=== PATIENT | male | born 1965 | race Caucasian/White ===

== ENCOUNTER 2024-02-16 13:08 | Day surgery (SDC) | payer MEDICARE, MEDICAID ==
[2024-02-16] VITALS (10 sets, daily range): BP systolic 104–143; BP diastolic 38–73; PULSE 82–86; RESP 12–16; TEMP 98.6; O2SAT 91–97
[~2024-02-16] VITALS: Ht 172.7 cm; Wt 103.6 kg
[~2024-02-16 13:08] MED LIST: AMLO2.5T2 PO; ASCO500C17 PO; ASPI-611 PO; ATOR20TA66 PO; BUPR1PAT TOP; CHOL10008 PO; CYAN-34 PO; DICY10CA88 PO; DULO-31 PO; FERR134T2 PO; GABA800T11 PO; GLUC1KIT PO; HYDR-3972 PO; INSU100C4 SQ; INSU100V41 SQ; LEVE750T66 PO; LORA10TA7 PO; LOSA-415 PO; ONDA4TAB12 PO; PANT-47 PO; PIOG15TA8 PO; SENN-36 PO
[2024-02-16] MEDS ORDERED: PHEN50TA4 PO (13:53)
[2024-02-16] MEDS ORDERED: PYRI50TA12 PO (13:53)
[2024-02-16] MEDS ORDERED: LACT1TAB15 PO (13:53)
[2024-02-16] MEDS ORDERED: CALC0.2536 PO (13:53)
[2024-02-16 16:17] LABS: GLUCOSE,CSF 131 MG/DL (40-75); TOTAL PROTEIN,CSF 98 MG/DL (30-60)
[2024-02-16 16:52] LABS: APPEARANCE,CSF CLEAR; CSF RBC 183 /CU MM (0); CSF SUPERNATANT COLOR COLORLESS; CSF VOLUME 14.5 ML; CSF WBC CT 1 /CU MM (0-5); TUBE# COUNTED 3
[2024-02-20 12:31] LABS: IMMUNOGLOBULIN G, QN, SERUM 748 mg/dL (603-1613)
[2024-02-22 17:14] LABS: CRYPTOCOCCUS AG TITER, CSF Not Indicated (.); CRYPTOCOCCUS ANTIGEN, CSF Negative (Negative); IMMUNOGLOBULIN G, QN CSF 3.5 mg/dL (0.0-10.3); MYELIN BASIC PROTEIN, CSF 3.1 ng/mL (0.0-4.7); VDRL, CSF Non Reactive (Non Rea:<1:1)
[2024-02-23 06:17] LABS: CYTOMEGALOVIRUS PCR Negative (Negative)
== END 2024-02-16 17:45 | disposition home or self-care (01) ==
LOC: SSTAY O 13:08
PROVIDERS: ATTEND Psychiatry & Neurology Neurology
DX: R56.9 Unspecified convulsions (principal); I10 Essential (primary) hypertension; E11.40 Type 2 diabetes mellitus with diabetic neuropathy, unspecified; E78.5 Hyperlipidemia, unspecified; G47.30 Sleep apnea, unspecified; M19.90 Unspecified osteoarthritis, unspecified site; Z79.82 Long term (current) use of aspirin; Z79.891 Long term (current) use of opiate analgesic; Z79.899 Other long term (current) drug therapy; Z98.41 Cataract extraction status, right eye; Z98.42 Cataract extraction status, left eye; Z98.890 Other specified postprocedural states; Z88.8 Allergy status to other drugs, medicaments and biological substances; Z82.49 Family history of ischemic heart disease and other diseases of the circulatory system; Z82.61 Family history of arthritis; Z80.0 Family history of malignant neoplasm of digestive organs
CPT/HCPCS: 36415; 62328; 82040; 82042; 82784; 82945; 83873; 83916; 84157; 86592; 87015; 87070; 87102; 87496; 87529; 87899; 88108; 89051; A4615; A6449

== ENCOUNTER 2024-09-18 13:00 | Inpatient (IN) | payer MEDICARE, MEDICAID ==
[~2024-09-18] VITALS: Ht 172.7 cm; Wt 106.8 kg
[~2024-09-18 13:00] MED LIST changes: -AMLO2.5T2 PO; +CALC0.2536 PO; -FERR134T2 PO; +GABA-1555 PO; -GABA800T11 PO; +LACT1TAB15 PO; +ONDA-243 PO; -ONDA4TAB12 PO; +PHEN50TA4 PO; +PYRI50TA12 PO
[2024-09-18 15:52] LABS: BASOPHILS % (AUTO) 0 % (0-1); EOSINOPHILS # (AUTO) 0.2 X10'3 (0-0.9); EOSINOPHILS % (AUTO) 4.9 % (0-6); HEMATOCRIT 24.2 % (42.0-52.0); HEMOGLOBIN 7.8 g/dl (14.0-17.9); LYMPHOCYTES # (AUTO) 0.5 X10'3 (1.1-4.8); LYMPHOCYTES % (AUTO) 9.8 % (21-51); MEAN CORPUSCULAR HEMOGLOBIN 26.2 PG (27.0-31.0); MEAN CORPUSCULAR HGB CONC 32.1 g/dL (33.0-36.5); MEAN CORPUSCULAR VOLUME 81.7 FL (78-98); MONOCYTES # (AUTO) 2.7 X10'3 (0-0.9); NEUTROPHILS # (AUTO) 1.4 X10'3 (1.8-7.7); NEUTROPHILS % (AUTO) 29.3 % (42-75); PLATELET COUNT 177 X10'3 (140-440); RED BLOOD COUNT 2.96 X10'6 (4.70-6.10); RED CELL DISTRIBUTION WIDTH 19.4 % (11.5-14.5); WHITE BLOOD COUNT 4.9 X10'3 (4.5-11.0)
[2024-09-18 16:06] LABS: ALANINE AMINOTRANSFERASE 26 U/L (12-78); ALBUMIN 2.2 G/DL (3.4-5.0); ALBUMIN/GLOBULIN RATIO 0.6 (1.1-1.5); ALKALINE PHOSPHATASE 76 IU/L (46-116); ANION GAP 6 (8-16); ASPARTATE AMINO TRANSFERASE 20 U/L (10-37); BILIRUBIN,TOTAL 0.3 MG/DL (0.1-1.0); BLOOD UREA NITROGEN 40 MG/DL (7-18); CALCIUM 7.4 MG/DL (8.5-10.1); CHLORIDE 111 MMOL/L (99-107); CREATININE 3.32 MG/DL (0.60-1.10); GLUCOSE 152 MG/DL (70-104); POTASSIUM 5.3 MMOL/L (3.5-5.1); SODIUM 142 MMOL/L (135-145); TOTAL CARBON DIOXIDE 24.8 MMOL/L (24-32); TOTAL PROTEIN 5.9 G/DL (6.4-8.2); eCRCL 23 ML/MIN; eGFR 19 ML/MIN
[2024-09-18 16:58] LABS: ANISOCYTOSIS 2+; PLATELET ESTIMATE NORMAL
[2024-09-18 16:59] LABS: ACANTHOCYTES FEW
[2024-09-18 17:00] LABS: POLYCHROMASIA FEW; SCHISTOCYTES FEW
[2024-09-18] MEDS ORDERED: ATOR40TA72 PO (21:16)
[2024-09-18] MEDS ORDERED: PIOG45TA64 PO (21:26)
[2024-09-18] MEDS: HYDROcodone/acetaminophen 10/325mg tab PO STA (22:26)
[2024-09-19] VITALS (8 sets, daily range): BP systolic 146–196; BP diastolic 59–91; PULSE 79–94; RESP 13–17; TEMP 97.7–98.8; O2SAT 85–97
[2024-09-19] MEDS ORDERED: magnesium sulf-water 4G/100mL 100 ML IV PRN (00:45)
[2024-09-19] MEDS ORDERED: magnesium Cl slow-release 64mg tablet PO PRN (00:45)
[2024-09-19] MEDS ORDERED: potassium Cl 40MEQ/1/2NS 520ml 520 ML IV PRN (00:45)
[2024-09-19] MEDS ORDERED: potassium Cl 20 mEq SR tablet PO PRN ×2 (00:45)
[2024-09-19] MEDS ORDERED: magnesium sulf-water 2g/50mL 50 ML IV PRN (00:45)
[2024-09-19] MEDS ORDERED: albuterol 2.5 MG/3 ML nebule NEB PRN (00:50)
[2024-09-19] MEDS: pantoprazole 40 MG vial IV ONE (01:07)
[2024-09-19] MEDS: ringers solution, lacted 1,000 ML IV SCH (01:07)
[2024-09-19] MEDS: benzonatate 100mg capsule PO ONE (01:10)
[2024-09-19] MEDS ORDERED: DEXTROSE 15 GM of carb/4 tabs (each vial/BOTTLE has 4 tablets) PO PRN ×2 (01:30)
[2024-09-19] MEDS ORDERED: glucagon, human recombinant 1mg kit SUBCUT PRN (01:30)
[2024-09-19] MEDS ORDERED: dextrose 50%-water 50ml dispensing syringe IV PRN ×2 (01:30)
[2024-09-19 01:48] LABS: ABSOLUTE RETICS # 43200 /CUMM (23000-93000); HEMATOCRIT 25.9 % (42.0-52.0); HEMOGLOBIN 8.4 g/dl (14.0-17.9); MEAN CORPUSCULAR HEMOGLOBIN 26.4 PG (27.0-31.0); MEAN CORPUSCULAR HGB CONC 32.4 g/dL (33.0-36.5); MEAN CORPUSCULAR VOLUME 81.6 FL (78-98); MEAN PLATELET VOLUME 10.1 FL (7.4-10.4); PLATELET COUNT 192 X10'3 (140-440); RED BLOOD COUNT 3.18 X10'6 (4.70-6.10); RED CELL DISTRIBUTION WIDTH 19.5 % (11.5-14.5); RETICULOCYTE % (AUTO) 1.4 % (0.5-1.5); WHITE BLOOD COUNT 4.4 X10'3 (4.5-11.0)
[2024-09-19 02:13] LABS: OCCULT BLOOD STOOL NEGATIVE (Neg)
[2024-09-19 02:29] LABS: HEMOGLOBIN A1C 8.1 % (4.5-6.2)
[2024-09-19 02:55] LABS: PLATELET ESTIMATE NORMAL
[2024-09-19 02:56] LABS: ACANTHOCYTES 2+; ANISOCYTOSIS 1+; ELLIPTOCYTES FEW; POIKILOCYTOSIS 2+
[2024-09-19] MEDS: INSULIN LISPRO 100 UNIT/ML INSULN.PEN MULTI-DOSE SQ SCH (07:00)
[2024-09-19 07:28] LABS: BILIRUBIN,URINE NEGATIVE (Neg); CLARITY,URINE CLEAR (Clear); COLOR,URINE YELLOW (Yellow); GLUCOSE, URINE 100 mg/dl (Neg); KETONES,URINE NEGATIVE (Neg); LEUKOCYTE ESTERASE ,URINE NEGATIVE (Neg); NITRITES, URINE NEGATIVE (Neg); OCCULT BLOOD,URINE TRACE-INTACT (Neg); PROTEIN,URINE >=300 mg/dl (Neg); UROBILINOGEN,URINE 0.2 E.U/dL (0.2-1.0)
[2024-09-19 07:30] LABS: UA COLLECTION TYPE VOIDED
[2024-09-19 07:33] LABS: BACTERIA,URINE NONE SEEN /HPF (Neg); RBC,URINE 0-2 /HPF (0-2); WBC,URINE 0-4 /HPF (0-4)
[2024-09-19 07:34] LABS: MUCUS STRANDS NONE SEEN /LPF (Neg); SQUAMOUS EPITHELIAL CELL,UR NONE SEEN /LPF (FEW)
[2024-09-19] MEDS: K and/or MAG REPLACEMENT MC SCH (08:00)
[2024-09-19] MEDS: pantoprazole 40 MG vial IV SCH (08:20)
[2024-09-19] MEDS: gabapentin 400mg capsule PO SCH (08:20)
[2024-09-19] MEDS: duloxetine 30mg CAPSULE.DR PO SCH (08:20)
[2024-09-19] MEDS: levetiracetam 250mg tablet PO SCH (08:21)
[2024-09-19] MEDS: benzonatate 100mg capsule PO SCH (08:21)
[2024-09-19] MEDS: guaiFENesin ER 600mg tablet PO SCH (08:22)
[2024-09-19] MEDS: sodium ferric gluc complex inj 125 MG in normal saline 100ml IV soln 100 ML IV SCH (08:28)
[2024-09-19] MEDS: HYDROcodone/acetaminophen 10/325mg tab PO PRN (10:37)
[2024-09-19] MEDS: insulin glargine (Lantus) pen - multi-dose SQ SCH (12:30)
[2024-09-19] MEDS: furosemide 40mg/4ml inj IV SCH (14:15)
[2024-09-19 16:16] LABS: TOTAL PROTEIN,URINE RANDOM 301.3 MG/DL
[2024-09-19 16:52] LABS: UA EOSINOPHILS NO EOS /HPF
[2024-09-19] MEDS: atorvastatin 20mg tablet PO SCH (22:32)
[2024-09-19] MEDS: dicyclomine 10 MG capsule PO PRN (22:33)
[2024-09-19] MEDS: ondansetron/PF 4mg/2ml inj IV PRN (22:33)
[2024-09-20] VITALS (9 sets, daily range): BP systolic 130–150; BP diastolic 40–70; PULSE 73–92; RESP 12–18; TEMP 97.4–98.8; O2SAT 96–100
[2024-09-20 06:33] LABS: EOSINOPHILS # (AUTO) 0.3 X10'3 (0-0.9); HEMATOCRIT 23.7 % (42.0-52.0); HEMOGLOBIN 7.8 g/dl (14.0-17.9); MEAN CORPUSCULAR HGB CONC 33.1 g/dL (33.0-36.5); MONOCYTES # (AUTO) 0.8 X10'3 (0-0.9); NEUTROPHILS # (AUTO) 1.8 X10'3 (1.8-7.7); WHITE BLOOD COUNT 3.9 X10'3 (4.5-11.0)
[2024-09-20 06:36] LABS: BASOPHILS # (AUTO) 0.1 X10'3 (0-0.2); BASOPHILS % (AUTO) 1.3 % (0-1); EOSINOPHILS % (AUTO) 6.6 % (0-6); LYMPHOCYTES % (AUTO) 26.2 % (21-51); MEAN CORPUSCULAR HEMOGLOBIN 26.6 PG (27.0-31.0); MEAN CORPUSCULAR VOLUME 80.5 FL (78-98); NEUTROPHILS % (AUTO) 45.9 % (42-75); PLATELET COUNT 218 X10'3 (140-440); RED BLOOD COUNT 2.94 X10'6 (4.70-6.10); RED CELL DISTRIBUTION WIDTH 18.7 % (11.5-14.5)
[2024-09-20 06:46] LABS: APTT 30 SECONDS (22-32); INR 1.1 INR; PROTHROMBIN TIME 11.5 SECONDS (9.0-12.0)
[2024-09-20 06:58] LABS: ALANINE AMINOTRANSFERASE 22 U/L (12-78); ALBUMIN 2.2 G/DL (3.4-5.0); ALBUMIN/GLOBULIN RATIO 0.6 (1.1-1.5); ALKALINE PHOSPHATASE 73 IU/L (46-116); ANION GAP 7 (8-16); ASPARTATE AMINO TRANSFERASE 19 U/L (10-37); BILIRUBIN,TOTAL 0.3 MG/DL (0.1-1.0); BLOOD UREA NITROGEN 37 MG/DL (7-18); CALCIUM 7.5 MG/DL (8.5-10.1); CHLORIDE 110 MMOL/L (99-107); CREATININE 3.09 MG/DL (0.60-1.10); GLUCOSE 155 MG/DL (70-104); MAGNESIUM 1.6 MG/DL (1.5-2.4); PHOSPHORUS 3.6 MG/DL (2.3-4.5); POTASSIUM 4.4 MMOL/L (3.5-5.1); SODIUM 142 MMOL/L (135-145); TOTAL CARBON DIOXIDE 24.8 MMOL/L (24-32); TOTAL PROTEIN 5.6 G/DL (6.4-8.2); eCRCL 25 ML/MIN; eGFR 21 ML/MIN
[2024-09-20 07:50] LABS: ANISOCYTOSIS 2+; ELLIPTOCYTES FEW; PLATELET ESTIMATE NORMAL; TEAR DROP CELLS FEW; TOTAL CELLS COUNTED 100
[2024-09-20 07:51] LABS: ACANTHOCYTES 2+; LARGE PLATELETS FEW
[2024-09-20] MEDS: CefTRIAXone/D5W-Rocephin 1gm 50 ML IV SCH (07:56)
[2024-09-20] MEDS: azithromycin/NS 500mg/250ml 250 ML IV SCH (07:57)
[2024-09-20] MEDS: EPOETIN ALFA-EPBX 20,000 UNIT/ML 1 ML MDV SQ ONE (13:15)
[2024-09-21 02:00] VITALS: BP 130/73; PULSE 71; RESP 15; TEMP 98.2; O2SAT 96
[2024-09-21 03:46] VITALS: PULSE 75; RESP 14; O2SAT 96
[2024-09-21 06:00] VITALS: BP 159/77; PULSE 65; RESP 11; TEMP 98.2; O2SAT 97
[2024-09-21 07:43] LABS: HEMATOCRIT 23.7 % (42.0-52.0); LYMPHOCYTES # (AUTO) 0.9 X10'3 (1.1-4.8); MEAN CORPUSCULAR HGB CONC 33.5 g/dL (33.0-36.5); MEAN PLATELET VOLUME 9.9 FL (7.4-10.4); MONOCYTES # (AUTO) 0.7 X10'3 (0-0.9); NEUTROPHILS # (AUTO) 2.4 X10'3 (1.8-7.7)
[2024-09-21 07:45] LABS: BASOPHILS % (AUTO) 1.1 % (0-1); EOSINOPHILS # (AUTO) 0.2 X10'3 (0-0.9); EOSINOPHILS % (AUTO) 5.7 % (0-6); HEMOGLOBIN 7.9 g/dl (14.0-17.9); MEAN CORPUSCULAR HEMOGLOBIN 26.8 PG (27.0-31.0); MEAN CORPUSCULAR VOLUME 80.1 FL (78-98); MONOCYTES % (AUTO) 17.1 % (2-12); NEUTROPHILS % (AUTO) 55.1 % (42-75); PLATELET COUNT 221 X10'3 (140-440); RED BLOOD COUNT 2.96 X10'6 (4.70-6.10); WHITE BLOOD COUNT 4.3 X10'3 (4.5-11.0)
[2024-09-21 07:52] VITALS: PULSE 68; RESP 18; O2SAT 93
[2024-09-21 07:52] LABS: ALBUMIN 2.1 G/DL (3.4-5.0); ANION GAP 8 (8-16); BLOOD UREA NITROGEN 34 MG/DL (7-18); BUN/CREATININE RATIO 11.1 (10.0-20.0); CALCIUM 7.6 MG/DL (8.5-10.1); CHLORIDE 111 MMOL/L (99-107); CREATININE 3.05 MG/DL (0.60-1.10); GLUCOSE 148 MG/DL (70-104); POTASSIUM 4.2 MMOL/L (3.5-5.1); SODIUM 145 MMOL/L (135-145); eCRCL 25 ML/MIN; eGFR 21 ML/MIN
[2024-09-21 07:55] LABS: APTT 28 SECONDS (22-32); INR 1.1 INR; PROTHROMBIN TIME 11.4 SECONDS (9.0-12.0)
[2024-09-21 08:00] VITALS: RESP 11; O2SAT 97
[2024-09-21] MEDS: gabapentin 400mg capsule PO SCH (08:10)
[2024-09-21 08:11] LABS: ACANTHOCYTES 1+; ANISOCYTOSIS 2+; PLATELET ESTIMATE NORMAL; POIKILOCYTOSIS FEW
[2024-09-21 08:41] LABS: ALANINE AMINOTRANSFERASE 22 U/L (12-78); ALBUMIN 2.1 G/DL (3.4-5.0); ALBUMIN/GLOBULIN RATIO 0.6 (1.1-1.5); ALKALINE PHOSPHATASE 72 IU/L (46-116); ANION GAP 6 (8-16); ASPARTATE AMINO TRANSFERASE 21 U/L (10-37); BILIRUBIN,TOTAL 0.2 MG/DL (0.1-1.0); BLOOD UREA NITROGEN 34 MG/DL (7-18); BUN/CREATININE RATIO 11.1 (10.0-20.0); CALCIUM 7.6 MG/DL (8.5-10.1); CHLORIDE 112 MMOL/L (99-107); CREATININE 3.05 MG/DL (0.60-1.10); GLUCOSE 149 MG/DL (70-104); MAGNESIUM 1.5 MG/DL (1.5-2.4); PHOSPHORUS 4.1 MG/DL (2.3-4.5); POTASSIUM 4.2 MMOL/L (3.5-5.1); SODIUM 144 MMOL/L (135-145); TOTAL CARBON DIOXIDE 25.9 MMOL/L (24-32); TOTAL PROTEIN 5.5 G/DL (6.4-8.2); eCRCL 25 ML/MIN; eGFR 21 ML/MIN
[2024-09-21] MEDS ORDERED: GUAI600T45 PO (09:54)
[2024-09-21] MEDS ORDERED: FURO-150 PO (09:54)
[2024-09-21] MEDS ORDERED: LEVO-65 PO (09:54)
[2024-09-21 11:00] VITALS: BP 143/77; PULSE 88; RESP 12; TEMP 99.2; O2SAT 97
[2024-09-21] MEDS ORDERED: insulin glargine (Lantus) pen - multi-dose SQ SCH (21:00)
[2024-09-22 09:12] LABS: IMMUNOGLOBULIN A, QN, SERUM 271 mg/dL (90-386); IMMUNOGLOBULIN G, QN, SERUM 716 mg/dL (603-1613); IMMUNOGLOBULIN M, QN, SERUM 74 mg/dL (20-172)
[2024-09-22 11:11] LABS: ANTINUCLEAR ANTIBODIES Positive (Negative)
[2024-09-24 17:36] LABS: ATYPICAL PANCA <1:20 titer (Neg:<1:20); CYTOPLASMIC (C-ANCA) <1:20 titer (Neg:<1:20); PERINUCLEAR (P-ANCA) <1:20 titer (Neg:<1:20)
== END 2024-09-21 11:46 | disposition home health service (06) | DRG 682 ==
LOC: ER 13:01 → ED HOLD 22:07 → PCU 3S 09-19 13:54
PROVIDERS: ADMIT Surgery; ATTEND Internal Medicine
DX: N17.0 Acute kidney failure with tubular necrosis (principal); I50.33 Acute on chronic diastolic (congestive) heart failure; J21.9 Acute bronchiolitis, unspecified; I13.0 Hypertensive heart and chronic kidney disease with heart failure and stage 1 through stage 4 chronic kidney disease, or unspecified chronic kidney disease; K92.2 Gastrointestinal hemorrhage, unspecified; Z20.822 Contact with and (suspected) exposure to COVID-19; G40.909 Epilepsy, unspecified, not intractable, without status epilepticus; N18.32 Chronic kidney disease, stage 3b; E11.22 Type 2 diabetes mellitus with diabetic chronic kidney disease; G89.29 Other chronic pain; M54.9 Dorsalgia, unspecified; D64.9 Anemia, unspecified; Z79.82 Long term (current) use of aspirin; Z88.8 Allergy status to other drugs, medicaments and biological substances; Z79.899 Other long term (current) drug therapy; Z79.4 Long term (current) use of insulin; Z85.72 Personal history of non-Hodgkin lymphomas; Z92.21 Personal history of antineoplastic chemotherapy; Z92.3 Personal history of irradiation
CPT/HCPCS: 36415; 71045; 71250; 76770; 80048; 80053; 80320; 81001; 82272; 82570; 82784; 82948; 83036; 83540; 83550; 83735; 83880; 83935; 84100; 84133; 84156; 84300; 84484; 85007; 85008; 85025; 85027; 85045; 85379; 85610; 85730; 86038; 86256; 86334; 86335; 86885; 86900; 86901; 87081; 87207; 87502; 87503; 87811; 93005; 93306; 94760; 99285; G0378; J0456; J0696; J1815; J1940; J2405; J2470; J2916; J7040; J7120; Q4081